=== PATIENT | male | born 1945 | race African-American/Black ===

== ENCOUNTER 2016-11-07 19:29 | Inpatient (IN) | payer BC, MEDICARE ==
--- NOTE | ~2016-11-07 | OR ---
Unit #: [id number] #: [id number] Patient: TUCKER HODGES [id number] [address] [facility]. [place], [place] [address] [id number] I MR#: [id number] NAME: TUCKER HODGES. ROOM: 463 Date of Procedure: 11/09/2016 Admission Date: 11/07/2016 Surgeon: Charlie Dowling M.D. : 1945 Attending Physician: Hal Hodges M.D. Primary Care Physician: Jossue Domingo III, M.D. OPERATIVE REPORT PRIMARY CARE PHYSICIAN Jossue Domingo. PREOPERATIVE DIAGNOSES Substantial hematochezia and anemia of acute gastrointestinal blood loss. PROCEDURE PERFORMED Colonoscopy up to cecum and submucosal injection. POSTOPERATIVE DIAGNOSES 1. The patient had moderate sigmoid and descending colon diverticulosis. 2. There was fresh blood and clots in the sigmoid and descending colon most prominently in the proximal descending colon. The transverse colon, the right colon, and cecum were normal. There being no blood or blood residue in this area. The overall impression is that of left-sided diverticular hemorrhage. No active bleeding was noticed after careful evaluation of each fold and segment of colon with total lavaging and watchful examination. The area of clots and profuse diverticulosis was tattooed proximally and distally. Just in case, if the patient may have recurrent bleed requiring surgery in the foreseeable future. The examination up to cecum was otherwise normal. RECOMMENDATIONS We will monitor the hemoglobin and hematocrit. Initiate diet. The patient may have recurrent bleed in the future. We will keep him in the hospital overnight and if the hemoglobin is stable tomorrow, he should. Be able to go home tomorrow morning. SEDATION USED Procedural sedation. DESCRIPTION OF PROCEDURE Following detailed explanation of the potential risks and complications of a colonoscopy, namely perforation, bleeding, and complication related to sedation, the patient was brought to GI lab and laid in the left lateral decubitus position. Incremental conscious sedation using procedural sedation was given. A digital rectal examination was performed. The latter revealed presence of fresh blood with the examining finger. Lubricated tip of the Olympus video colonoscope was inserted through the anus and advanced under direct vision. The scope was advanced past rectosigmoid into descending colon. Fresh blood was noted in the rectosigmoid and descending colon. The patient had substantial clots in Unit #: [id number] #: [id number] Patient: TUCKER HODGES the area of the proximal and mid descending colon; however, no active brisk bleeding was noted. The scope tip was then navigated all the way up to cecum with visualization of the ileocecal valve and the appendiceal orifice. The cecum in the right colon as well as the transverse colon were completely normal. There being no blood residue in this area indicating the patient had left-sided diverticular bleed. The quality of the prep was excellent. Successive segments of the colonic mucosa were examined upon withdrawal and appeared unremarkable except for presence of left-sided diverticula and fresh blood as noted earlier. Very careful meticulous examination was done of the entire colon especially the left colon carefully lavaging and washing of each segment of the colon to look for any active bleeding. No active bleeding was noticed even after dislodging the clots in the descending colon. The area of proximally and distally profuse diverticular segment was then tattooed using Elena ink for future reference. The patient did not have any significant hemorrhoids. The scope was then withdrawn and the patient returned to recovery area. He tolerated the procedure without any postprocedure complications. Dictated by... Abhishek Gallardo/alonzo TD: 11/09/2016 11:07 JOB #: [id number] OPERATIVE REPORT X Charlie Dowling MD X PROCEDURE OPERATIVE NOTE
--- NOTE | ~2016-11-07 | CO ---
Unit #: [id number] #: [id number] Patient: TUCKER HODGES [id number] [facility]. [address] [place], [place] [address] [id number] I MR#: [id number] NAME: TUCKER HODGES. ROOM: 463 Age: 70 Sex: M Admission Date: 11/07/2016 : 1945 Attending Physician: Hal Hodges M.D. Primary Care Physician: Jossue Domingo III, M.D. Consultation Date: 11/09/2016 CONSULTATION REPORT PRIMARY CARE PHYSICIAN Jossue Domingo. REASON FOR CONSULTATION Substantial lower gastrointestinal bleed. HISTORY OF PRESENT ILLNESS Mr. Hodges is a very pleasant 70-year-old gentleman, who works at [employer]. The patient is well known to me and has seen me about 4 years ago for a screening colonoscopy which was unremarkable except for presence of diverticulosis. He presents with substantial painless hematochezia lasting for about 48 hours along with a drop in hemoglobin from 16.7 to 14.7. There is no history of any abdominal pain. He had no preceding symptoms such as abdominal pain or dyspepsia. His past medical history is significant for uncomplicated hypertension. The patient denies any history of chest pain or syncope. PAST MEDICAL HISTORY Significant for history of hypertension; carpal tunnel syndrome; diverticulosis; prostate cancer, status post surgery. PAST SURGICAL HISTORY Included a prostatectomy in 2004, history of hemorrhoidectomy, history of lower back surgery, and left total hip replacement. MEDICATIONS At home include potassium, Norvasc, Neurontin, and losartan and hydrochlorothiazide. He is not taking any anticoagulation. ALLERGIES The patient has allergy to codeine. SOCIAL HISTORY He does not smoke. Drinks occasional beer socially. He works at [employer]. FAMILY HISTORY Aunt of colon cancer at age of 65. Sister had breast cancer and brother had lung cancer. REVIEW OF SYSTEMS Detailed review of organ systems does not reveal any recent weight loss. No history of fever, chills, or rigors. No history of headache, seizures, Unit #: [id number] #: [id number] Patient: TUCKER HODGES chest pain, or syncope. No history of cough, expectoration, or hemoptysis. No history of dysuria, hematuria, or pyuria. No history of focal seizures or extremity weakness. Rest of review of organ systems is unremarkable. PHYSICAL EXAMINATION GENERAL: He is alert and oriented, and appears comfortable. VITAL SIGNS: Stable with a temperature of 97.7, pulse 67 per minute and regular, respiratory rate is 18, blood pressure 141/76. He weighs 200 pounds and his baseline weight is about the same. HEENT: He has no pallor, icterus, lymphadenopathy, or peripheral edema. CARDIOVASCULAR: Normal heart sounds. No murmurs on auscultation. LUNGS: Reveal normal breath sounds. Good air entry. ABDOMEN: Soft and nontender. Liver and spleen are not palpable. Bowel sounds normal. DIAGNOSTIC STUDIES LABORATORY RESULTS: Shows admission hemoglobin of 16.7 and hemoglobin a day later is 14.7, otherwise all platelets and white counts are normal. BUN and creatinine are also normal and LFTs are also normal. INR is 1.0. CLINICAL IMPRESSION The most likely etiology of the patient's presentation is either internal hemorrhoidal or diverticular hemorrhage. A colonoscopy is warranted to be scheduled for later today. The pros and cons of the procedure, potential risks, and complications were discussed with the patient including possibility of perforation, bleeding, and complication related to sedation. Thank you very much for asking me to see this pleasant gentleman. I appreciate the consult. Dictated by... Abhishek Gallardo/alonzo TD: 11/09/2016 12:01 JOB #: [id number] CONSULTATION REPORT X Charlie Dowling MD X CONSULTATION REPORT
--- NOTE | ~2016-11-07 | DS ---
Unit #: [id number] #: [id number] Patient: TUCKER HODGES [id number] [address] [address] [id number] I MR#: [id number] NAME: TUCKER HODGES. ROOM: 463 Age: 70 Sex: M Admission Date: 11/07/2016 : 1945 Discharge Date: 11/10/2016 Attending Physician: Tati Segovia M.D. Primary Care Physician: Jossue Domingo III, M.D. DISCHARGE SUMMARY DISCHARGE DIAGNOSES 1. Acute lower gastrointestinal bleed, likely diverticular. 2. Hypertension. 3. Hypokalemia. 4. Hyponatremia. 5. History of prostate cancer. 6. History of right carpal tunnel syndrome. 7. History of diverticulosis. CONSULTATIONS Dr. Dowling. PROCEDURES 1. Patient had colonoscopy which shows moderate sigmoid and descending colon diverticulosis. Fresh blood and clots in the sigmoid and descending colon present. 2. CT scan of the abdomen and pelvis shows extensive left-sided colonic diverticulosis, particularly in the sigmoid colon. Thickening throughout the sigmoid colon present. Moderate colonic stool burden present. DIAGNOSTIC STUDIES LABORATORY: Magnesium 2.0. Sodium 1.36, potassium 3.7. Creatinine 1.2. WBC 8.1, hemoglobin 14.4, platelets 174. ALLERGIES Codeine. DISCHARGE MEDICATIONS 1. Losartan and hydrochlorothiazide 100/25 one tablet p.o. daily. 2. Neurontin 300 p.o. b.i.d. 3. Norvasc 10 daily. 4. Potassium 10 daily. HOSPITALIZATION COURSE A 70 year old admitted because of lower gastrointestinal bleed secondary to diverticular. Patient seen by Dr. Dowling. Patient had a colonoscopy which showed active bleeding. The area of clots and profuse diverticulosis was tattooed proximally and distally by Dr. Dowling. Currently no active bleeding, hemoglobin 14.4; patient is okay to be discharged as per Dr. Dowling. Patient will be discharged home. Follow with family physician in one-week's time Unit #: [id number] #: [id number] Patient: TUCKER HODGES Hypokalemia: Replaced the potassium. Hypertension: Well controlled. DISPOSITION Discharge home. FOLLOWUP 1. Follow with family physician in one-week's time. 2. Follow with Dr. Dowling in two to three months' time. Dictated by... Abhishek Milton/mike TD: 11/10/2016 17:38 JOB #: [id number] DISCHARGE SUMMARY X Tati Segovia MD X DISCHARGE SUMMARY
--- NOTE | ~2016-11-07 | HP ---
Unit #: [id number] #: [id number] Patient: TUCKER HODGES [id number] [address] [place], [place] [address] [id number] I MR#: [id number] NAME: TUCKER HODGES. ROOM: 71254 Age: 70 Sex: M Admission Date: 11/07/2016 : 1945 Attending Physician: Hal Hodges M.D. Primary Care Physician: Jossue Domingo III, M.D. HISTORY AND PHYSICAL CHIEF COMPLAINT Dark blood in the stool. DISCUSSION This is a 70-year-old gentleman with a history of hypertension, history of prostate cancer, previous surgery in 2004, carpal tunnel syndrome right hand, history of diverticulosis. He presented to emergency room with chief complaint of having bright red blood in the rectum and the stool. He said initially he had a few times back last week but not great amount. This morning is a large amount. The patient had blood again this afternoon and he decided to come to the ER. He had a colonoscopy in 2012 which shows mild sigmoid diverticulosis of sigmoid colon and descending colon. He denies nausea, vomiting but he is also complaining of abdominal pain, left side abdominal pain. No fever, no chills, no cough, no chest pain, no other complaint. PAST MEDICAL HISTORY 1. History of hypertension. 2. Right carpal tunnel syndrome. 3. History of prostate cancer with previous surgery. 4. History of diverticulosis. PAST SURGICAL HISTORY 1. History of left total hip replacement. 2. History of lower back surgery in 1992. 3. History of prostatectomy in 2004. 4. History of right Achilles tendon repair. 5. History of hemorrhoidectomy. 6. History of colonoscopy. Last colonoscopy in 2013 shows moderate diverticulosis of sigmoid and descending colon. MEDICATIONS Medications from home as followin. Neurontin 300 mg twice a day. 2. Potassium chloride 10 mEq daily. 3. Norvasc 10 mg p.o. daily. 4. Losartan/hydrochlorothiazide 100/25, one tablet p.o. daily. FAMILY HISTORY Aunt of colon cancer at age 65. Sister had breast cancer. Mother has lung cancer. SOCIAL HISTORY He denies smoking. He drinks alcohol, beer, socially. 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 REVIEW OF SYSTEMS 14 review of systems negative except for history of presenting illness. PHYSICAL EXAMINATION GENERAL: Middle aged man lying in the bed comfortably, currently not in any distress. He is alert, awake, oriented x3. CURRENT VITAL SIGNS: Temperature 98.4, heart rate 79, respiratory rate 16, blood pressure 144/74. HEENT: Pupils equal, reactive to light and accommodation. Head is normocephalic, atraumatic. NECK: Supple. No JVD. HEART: S1, S2. Regular rate and rhythm. LUNGS: Clear to auscultation bilaterally. No rhonchi, no wheezing. ABDOMEN: Soft, nontender, nondistended. Bowel sounds positive. EXTREMITIES: Inspection normal. No cyanosis, no clubbing, no edema. NEURO: No focal neurologic deficit. DIAGNOSTIC STUDIES LABORATORY: Chemistry - sodium 138, potassium 3.1, chloride 105, glucose 88, BUN 22, creatinine 1.1. LFTs within normal limits. INR is 1. White count is 9, hemoglobin 16, hematocrit 40, platelets 410. ASSESSMENT AND PLAN 1. Lower gastrointestinal bleed: (2) . Keep patient on clear liquid diet, monitor H and H. Ask GI, Dr. Dowling, to evaluate. 2. Left sided abdominal pain: I will go ahead and get the CT scan with p.o. and IV contrast. 3. Hypokalemia, replace. 4. History of hypertension. 5. Right carpal tunnel syndrome. 6. History of prostate cancer with previous surgery in 2004. 7. DVT prophylaxis: Will place the patient on SCDs. Dictated by Abhishek Monte TD: 11/08/2016 09:45 JOB #: [id number] Unit #: [id number] #: [id number] Patient: TUCKER HODGES HISTORY AND PHYSICAL X X HISTORY AND PHYSICAL
--- NOTE | ~2016-11-07 | CT2 ---
[facility] A Service of [facility] RADIOLOGY TEXT RESULTS PATIENT: TUCKER HODGES LOCATION: [facility] 4610-22 : 47 UNIT #: [id number] AGE: [address]: Hal Hodges MD SEX: M ORDER DR: [id number] [facility] [address] [place], [place] [address] [id number] I MR#: [id number] Acc #: [id number] NAME: TUCKER HODGES. : 1945 SEX: M STUDY DATE/TIME: 11/07/2016 21:51 UNIT: [facility] ROOM: 3 STUDY DESCRIPTION: CT Abd and Pelv W Cont Attending Physician: Hal Hodges M.D. Ordering Physician: Kirsty Bravo M.D. Primary Care Physician: Jossue Domingo III, M.D. MEDICAL IMAGING REPORT This report is preliminary unless electronic signature is present EXAM CT abdomen and pelvis with contrast. DATE OF EXAM 11/07/2016 INDICATIONS Dark bloody stools for the past 3 days. PROCEDURE Contrast-enhanced CT of the abdomen and pelvis. 100 mL of Isovue-370. COMPARISON None. TECHNIQUE NOTE: This CT exam was performed with one or more of the following radiation dose reduction techniques: automatic exposure control, adjustment of mA and/or kV according to patient size, and iterative reconstruction. FINDINGS ABDOMEN WITH CONTRAST: Included lung bases clear. Liver, spleen, pancreas, gallbladder unremarkable. Thickening of the left adrenal gland, most in keeping with hyperplasia. Small hiatal hernia. Extensive sigmoid diverticulosis. There is thickening throughout the sigmoid colon but no definite active inflammation. Sigmoid colon is obscured by streak artifact from left hip prosthesis. Moderate colonic stool burden. Appendix is normal. Bilateral renal cysts largest in the left kidney measures up to 5.6 cm. PELVIS WITH CONTRAST: Previous prostatectomy. No pelvic mass [facility] of [facility] RADIOLOGY TEXT RESULTS PATIENT: TUCKER HODGES LOCATION: [facility] : 47 UNIT #: [id number] AGE: [address]: Hal Hodges MD SEX: M ORDER DR: adenopathy. No aggressive appearing bone lesion. IMPRESSION 1. Extensive left-sided colonic diverticulosis particularly in the sigmoid colon. There is some thickening throughout the sigmoid colon but no definite active inflammation. Findings are favored to predominately represent changes of chronic diverticulitis. Note that the sigmoid colon is obscured by streak artifact from the left hip prosthesis. 2. Moderate colonic stool burden. 3. Bilateral renal cysts. Dictated by... Robinson Mckenzie M.D. THIS IS AN ELECTRONICALLY VERIFIED REPORT Robinson Mckenzie M.D. at 11/10/2016 7:23 AM ORLANDO/rakesh TD: 11/08/2016 21:36 JOB #: [id number] MEDICAL IMAGING REPORT COPY
[~2016-11-07 19:29] MED LIST: AVALIDE PO; AVAPRO300 M1 PO; EFFER-K 20 MEQ20 MEQ PO; HYDROCHLOROTHIA25 MG PO; HYZAAR PO; KLOR-CON PO; LOSARTAN-HCTZ1 EAC1 PO; MULTI-DAY VITAM1 TAB PO; NAPROXEN PO; NORVASC PO
[2016-11-07 19:35] LABS: BASOPHIL# 0.1 X10e3 (0-0.3); BASOPHIL% 0.7 % (0-2.5); EOSINOPHIL# 0.2 X10e3 (0-0.7); EOSINOPHIL% 1.7 % (0.0-7.0); HEMATOCRIT 50.4 % (38.0-50.0); HEMOGLOBIN 16.7 gm/dL (13.0-16.0); LYMPHOCYTE# 2.1 X10e3 (1.0-3.5); LYMPHOCYTE% 21.9 % (17.0-45.0); MEAN CELL VOLUME 87.2 FL (83-96); MEAN CORPUSCULAR HEMOGLOBIN 28.9 PG (28-34); MEAN CORPUSCULAR HGB CONC 33.1 g/dL (30-36); MEAN PLATELET VOLUME 8.9 FL (6.5-11.5); MONOCYTE# 0.8 X10e3 (0-1.0); MONOCYTE% 7.8 % (3.0-12.0); NEUTROPHIL# 6.6 X10e3 (1.5-7.1); NEUTROPHIL% 67.9 % (40-75); PLATELET COUNT 210 X10e3 (140-420); RED BLOOD COUNT 5.78 X10e (3.90-5.60); WHITE BLOOD COUNT 9.7 X10e3 (4.0-10.5)
[2016-11-07 19:37] LABS: DIFF IND NO
[2016-11-07 19:49] LABS: PROTHROMBIN TIME (PATIENT) 10.5 SECONDS (9.6-11.5)
[2016-11-07 19:57] LABS: ALBUMIN SERUM 3.9 g/dL (3.5-5.0); ALKALINE PHOSPHATASE 72 U/L (32-92); ALT (SGPT) 19 U/L (10-40); AST (SGOT) 23 U/L (10-42); BILIRUBIN, DIRECT 0.1 mg/dL (0.0-0.2); BILIRUBIN,TOTAL 1.1 mg/dL (0.2-2.0); BLOOD UREA NITROGEN 22 mg/dL (9-23); CALCIUM SERUM 9.2 mg/dL (8.4-10.2); CARBON DIOXIDE 29 mmol/L (22-31); CHLORIDE 105 mmol/L (100-111); CREATININE SERUM 1.1 mg/dL (0.6-1.4); GLOM FILT RATE Estimated ABOVE60 mL/min (>60); GLUCOSE FASTING 88 mg/dL (70-110); POTASSIUM 3.1 mmol/L (3.5-5.1); PROTEIN TOTAL SERUM 7.7 g/dL (6.0-8.3); SODIUM 138 mmol/L (135-145)
[2016-11-07] MEDS ORDERED: NEURONTIN300 MG PO (20:03)
[2016-11-07] MEDS ORDERED: NORVASC10 MG PO (20:04)
[2016-11-07] MEDS ORDERED: KLOR-CON PO (20:04)
[2016-11-07] MEDS ORDERED: LOSARTAN-HCTZ1 EAC1 PO (20:05)
[2016-11-08 05:44] LABS: BASOPHIL# 0.1 X10e3 (0-0.3); BASOPHIL% 0.7 % (0-2.5); EOSINOPHIL# 0.3 X10e3 (0-0.7); HEMATOCRIT 45.6 % (38.0-50.0); LYMPHOCYTE% 23.3 % (17.0-45.0); MEAN CELL VOLUME 86.8 FL (83-96); MEAN CORPUSCULAR HEMOGLOBIN 28.6 PG (28-34); MEAN CORPUSCULAR HGB CONC 32.9 g/dL (30-36); MEAN PLATELET VOLUME 8.8 FL (6.5-11.5); MONOCYTE# 0.8 X10e3 (0-1.0); MONOCYTE% 9.7 % (3.0-12.0); NEUTROPHIL# 5.3 X10e3 (1.5-7.1); NEUTROPHIL% 63.3 % (40-75); PLATELET COUNT 189 X10e3 (140-420); RED BLOOD COUNT 5.25 X10e (3.90-5.60); RED CELL DISTRIBUTION WIDTH 13.8 % (11.0-15.5); WHITE BLOOD COUNT 8.4 X10e3 (4.0-10.5)
[2016-11-08 05:47] LABS: DIFF IND NO
[2016-11-08 06:04] LABS: BLOOD UREA NITROGEN 17 mg/dL (9-23); BUN/CREATININE RATIO 15.45; CALCIUM SERUM 8.9 mg/dL (8.4-10.2); CARBON DIOXIDE 26 mmol/L (22-31); CHLORIDE 99 mmol/L (100-111); CREATININE SERUM 1.1 mg/dL (0.6-1.4); GLOM FILT RATE Estimated ABOVE60 mL/min (>60); GLUCOSE FASTING 117 mg/dL (70-110); POTASSIUM 3.4 mmol/L (3.5-5.1); SODIUM 133 mmol/L (135-145)
[2016-11-09 03:39] LABS: BASOPHIL# 0.1 X10e3 (0-0.3); EOSINOPHIL# 0.2 X10e3 (0-0.7); EOSINOPHIL% 2.7 % (0.0-7.0); HEMOGLOBIN 14.7 gm/dL (13.0-16.0); LYMPHOCYTE% 22.1 % (17.0-45.0); MEAN CELL VOLUME 86.2 FL (83-96); MEAN CORPUSCULAR HEMOGLOBIN 28.8 PG (28-34); MEAN CORPUSCULAR HGB CONC 33.3 g/dL (30-36); MEAN PLATELET VOLUME 9.2 FL (6.5-11.5); MONOCYTE# 0.8 X10e3 (0-1.0); MONOCYTE% 8.8 % (3.0-12.0); NEUTROPHIL% 65.4 % (40-75); PLATELET COUNT 190 X10e3 (140-420); RED CELL DISTRIBUTION WIDTH 13.9 % (11.0-15.5); WHITE BLOOD COUNT 9.1 X10e3 (4.0-10.5)
[2016-11-09 03:41] LABS: DIFF IND NO
[2016-11-09 04:04] LABS: BLOOD UREA NITROGEN 11 mg/dL (9-23); CALCIUM SERUM 9.2 mg/dL (8.4-10.2); CARBON DIOXIDE 27 mmol/L (22-31); CHLORIDE 106 mmol/L (100-111); CREATININE SERUM 1.1 mg/dL (0.6-1.4); GLOM FILT RATE Estimated ABOVE60 mL/min (>60); GLUCOSE FASTING 99 mg/dL (70-110); POTASSIUM 3.7 mmol/L (3.5-5.1); SODIUM 138 mmol/L (135-145)
[2016-11-09 13:45] LABS: BASOPHIL% 0.4 % (0-2.5); EOSINOPHIL# 0.2 X10e3 (0-0.7); EOSINOPHIL% 2.4 % (0.0-7.0); HEMATOCRIT 45.2 % (38.0-50.0); HEMOGLOBIN 14.7 gm/dL (13.0-16.0); LYMPHOCYTE# 1.5 X10e3 (1.0-3.5); LYMPHOCYTE% 20.1 % (17.0-45.0); MEAN CELL VOLUME 87.7 FL (83-96); MEAN CORPUSCULAR HEMOGLOBIN 28.5 PG (28-34); MEAN CORPUSCULAR HGB CONC 32.6 g/dL (30-36); MEAN PLATELET VOLUME 8.7 FL (6.5-11.5); MONOCYTE# 0.5 X10e3 (0-1.0); MONOCYTE% 7.3 % (3.0-12.0); NEUTROPHIL# 5.2 X10e3 (1.5-7.1); NEUTROPHIL% 69.8 % (40-75); PLATELET COUNT 176 X10e3 (140-420); RED BLOOD COUNT 5.16 X10e (3.90-5.60); RED CELL DISTRIBUTION WIDTH 13.8 % (11.0-15.5); WHITE BLOOD COUNT 7.5 X10e3 (4.0-10.5)
[2016-11-09 13:47] LABS: DIFF IND NO
[2016-11-10 03:19] LABS: BASOPHIL% 0.6 % (0-2.5); EOSINOPHIL# 0.3 X10e3 (0-0.7); EOSINOPHIL% 3.4 % (0.0-7.0); HEMATOCRIT 43.6 % (38.0-50.0); HEMOGLOBIN 14.4 gm/dL (13.0-16.0); LYMPHOCYTE# 2.1 X10e3 (1.0-3.5); MEAN CELL VOLUME 87.2 FL (83-96); MEAN CORPUSCULAR HEMOGLOBIN 28.8 PG (28-34); MEAN CORPUSCULAR HGB CONC 33.1 g/dL (30-36); MEAN PLATELET VOLUME 8.9 FL (6.5-11.5); MONOCYTE# 0.8 X10e3 (0-1.0); MONOCYTE% 9.8 % (3.0-12.0); NEUTROPHIL# 4.9 X10e3 (1.5-7.1); NEUTROPHIL% 60.2 % (40-75); PLATELET COUNT 174 X10e3 (140-420); RED CELL DISTRIBUTION WIDTH 13.9 % (11.0-15.5); WHITE BLOOD COUNT 8.1 X10e3 (4.0-10.5)
[2016-11-10 03:20] LABS: DIFF IND NO
[2016-11-10 04:29] LABS: BLOOD UREA NITROGEN 11 mg/dL (9-23); BUN/CREATININE RATIO 9.16; CALCIUM SERUM 9.1 mg/dL (8.4-10.2); CARBON DIOXIDE 24 mmol/L (22-31); CHLORIDE 105 mmol/L (100-111); CREATININE SERUM 1.2 mg/dL (0.6-1.4); GLOM FILT RATE Estimated ABOVE60 mL/min (>60); GLUCOSE FASTING 110 mg/dL (70-110); POTASSIUM 3.7 mmol/L (3.5-5.1); SODIUM 136 mmol/L (135-145)
== END 2016-11-10 15:19 | disposition home or self-care (01) | DRG 378 ==
LOC: CED 19:29 → CEDOF 20:15 → C4C 11-08 13:49
PROVIDERS: Emergency Medicine; Internal Medicine; Internal Medicine Endocrinology, Diabetes & Metabolism; Internal Medicine Gastroenterology
PROC: 3E1H88Z Irrigation of Lower GI using Irrigating Substance, Via Natural or Artificial Opening Endoscopic (ICD-10-PCS; 2016-11-09)
PROC: 0DJD8ZZ Inspection of Lower Intestinal Tract, Via Natural or Artificial Opening Endoscopic (ICD-10-PCS; principal; 2016-11-09 07:25)
DX: K57.31 Diverticulosis of large intestine without perforation or abscess with bleeding (principal); E87.1 Hypo-osmolality and hyponatremia; I10 Essential (primary) hypertension; E87.6 Hypokalemia; Z85.46 Personal history of malignant neoplasm of prostate; Z80.3 Family history of malignant neoplasm of breast; Z80.1 Family history of malignant neoplasm of trachea, bronchus and lung; Z80.0 Family history of malignant neoplasm of digestive organs; G56.01 Carpal tunnel syndrome, right upper limb
CPT/HCPCS: 36415; 74177; 80048; 80076; 83735; 84132; 85025; 85610; 85730; 86900; 86901; 99285; C9113; J2250; J3010; Q9967